=== PATIENT | male | born 1985 | race Caucasian/White ===

== ENCOUNTER → 2018-02-10 09:10 | Outpatient (CLI) | payer OTHER, SELFPAY ==
[2018-02-08 15:23] LABS: Absolute Lymphocyte Count 1.51 X10^3/ul (0.83-4.51); Absolute Neutrophil Count 2.9 X10^3/uL (2.0-7.7); Basophil# 0.03 X10^3/uL; Basophil% 0.6 % (0-1); Eosinophil# 0.12 X10^3/uL; Eosinophils% 2.4 % (0-5); Hematocrit 43.9 % (40-54); Hemoglobin 15.5 g/dl (13.0-16.5); Lymphocyte # 1.51 X10^3/ul (4.0); Lymphocyte % 30.7 % (19-41); Mean Corp Hgb Conc 35.3 g/gl (32-36); Mean Corpuscular Volume 84.9 fL (80-94); Mean Platelet Vol. 10.6 fl (6.2-12.0); Monocyte# 0.38 X10^3/uL; Monocyte% 7.7 % (0-10); Neutrophil # 2.88 X10^3/uL (2.7-7.7); Neutrophil % 58.6 % (47-70); Platelet Count 234 K/mm3 (150-450); RBC Distribution Width CV 11.8 % (11.6-14.6); RBC Distribution Width SD 35.6 fl (35.1-43.9); Red Blood Count 5.17 M/mm3 (4.6-6.2); White Blood Count 4.9 K/mm3 (4.4-11.0)
[2018-02-08 15:44] LABS: POSITIVE COUNT NO; POSITIVE DIFFERENTIAL NO; POSITIVE MORPHOLOGY NO
[2018-02-08 16:13] LABS: PSA,Total - Annual Screen 0.78 ng/mL (0.00-4.00); Thyroid Stim Hormone (TSH) 1.65 uIU/mL (0.358-3.74)
== END ==
PROVIDERS: Visit Provider Nurse Practitioner
DX: R79.89 Other specified abnormal findings of blood chemistry (principal); R53.83 Other fatigue; F41.1 Generalized anxiety disorder; F32.9 Major depressive disorder, single episode, unspecified
CPT/HCPCS: 82533; 84153; 84403; 84439; 84443; 84481; 85025; G0103